=== PATIENT | female | born 1965 | race Caucasian/White ===

== ENCOUNTER 2017-03-08 00:23 | Emergency (ER) | payer MEDICARE ==
[~2017-03-08] VITALS: Ht 170.2 cm; Wt 111.4 kg
[~2017-03-08 00:23] MED LIST: LISI2.5T PO; METF500T4 PO
[2017-03-08 00:24] VITALS: BP 136/84
[2017-03-08] MEDS ORDERED: OXYcodone/APAP 5/325MG TABLET ONE (01:58)
[2017-03-08] MEDS ORDERED: KETOROLAC 30 MG/1 ML ONE (01:59)
[2017-03-08] MEDS ORDERED: OXYcodone/APAP 5/325MG TABLET PO ONE (02:00)
[2017-03-08] MEDS ORDERED: KETOROLAC 30 MG/1 ML IM ONE (02:00)
== END 2017-03-08 02:57 | disposition home or self-care (01) ==
LOC: ED 01:24
DX: R07.89 Other chest pain (principal); Z90.89 Acquired absence of other organs
CPT/HCPCS: 71101; 93005; 96372; 99284; J1885